=== PATIENT | male | born 1970 | race Caucasian/White ===

== ENCOUNTER 2019-10-02 11:20 | Inpatient (IN) | payer BC ==
[2019-10-02 12:02] VITALS: BMI 24.2
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
[2019-10-02] MEDS ORDERED: MENTHOL/PHENOL 1 EACH UD MM PRN (13:44)
[2019-10-02] MEDS ORDERED: chlordiazePOXIDE HCL 25 MG CAPSULE PO PRN (13:44)
[2019-10-02] MEDS ORDERED: ACETAMINOPHEN 325 MG TABLET (FP) PO PRN ×2 (13:44)
[2019-10-02] MEDS ORDERED: hydrOXYzine PAMOATE 25 MG CAPSULE (FP) PO PRN (13:44)
[2019-10-02] MEDS ORDERED: NICOTINE POLACRILEX 2 MG GUM BUC PRN (13:44)
[2019-10-02] MEDS ORDERED: MAGNESIUM CITRATE 300 ML BOTTLE PO PRN (13:44)
[2019-10-02] MEDS ORDERED: MAGNESIUM HYDROX 2400MG/30ML ORAL SUSPENSION 30 ML CUP PO PRN (13:44)
[2019-10-02] MEDS ORDERED: BISMUTH SUBSALICYLATE 262 MG/15 ML BTL PO PRN (13:44)
[2019-10-02] MEDS ORDERED: MAG HYDROX/AL HYDROX/SIMETH 30 ML UNIT-DOSE CUP PO PRN (13:44)
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
[2019-10-02] MEDS ORDERED: chlordiazePOXIDE HCL 25 MG CAPSULE PO ONE (14:40)
[2019-10-02] MEDS: GABAPENTIN 400 MG CAPSULE (FP) PO SCH ×2 (14:59→22:07)
[2019-10-02] MEDS: NICOTINE 14 MG/24 HOURS TOPICAL PATCH TD SCH (14:59)
[2019-10-02] MEDS: LISINOPRIL 5 MG TABLET (FP) PO SCH (14:59)
[2019-10-02] MEDS: IBUPROFEN 400 MG TABLET (FP) PO PRN (15:01)
[2019-10-02] MEDS: BACITRACIN 15 GM TUBE TOPICAL OINTMENT TP SCH ×2 (15:05→22:08)
[2019-10-02] MEDS: chlordiazePOXIDE HCL 25 MG CAPSULE PO SCH ×2 (17:27→22:07)
[2019-10-02] MEDS: METHOCARBAMOL 500 MG TABLET PO PRN (17:29)
[2019-10-02] MEDS: THIAMINE HCL 100 MG TABLET (FP) PO SCH (22:07)
[2019-10-02] MEDS: MELATONIN 5 MG TABLETS PO PRN (22:07)
[2019-10-03] MEDS: chlordiazePOXIDE HCL 25 MG CAPSULE PO SCH ×4 (05:31→22:12)
[2019-10-03] MEDS: GABAPENTIN 400 MG CAPSULE (FP) PO SCH ×3 (05:32→22:11)
[2019-10-03] MEDS: METHOCARBAMOL 500 MG TABLET PO PRN ×2 (05:33→17:40)
[2019-10-03] MEDS: IBUPROFEN 400 MG TABLET (FP) PO PRN ×2 (05:33→17:41)
[2019-10-03 09:53] LABS: HEMATOCRIT 40.3 % (35.4-49); HEMOGLOBIN 13.4 GM/dL (11.7-16.9); MCH 29.6 pg (25.7-33.7); MCHC 33.2 g/dl (32.0-35.9); MEAN CELL VOLUME 89.2 fl (80-96); MEAN PLT VOLUME 7.8 fl (7.5-11.1); PLATELET COUNT 255 K/MM3 (134-434); RBC 4.52 M/mm3 (4.00-5.60); RDW 17.3 % (11.9-15.9); WHITE BLOOD COUNT 7.3 K/mm3 (4.0-10.0)
[2019-10-03 10:06] LABS: ALBUMIN 3.5 g/dl (3.4-5.0); BILIRUBIN,TOTAL 0.4 mg/dL (0.2-1); BLOOD UREA NITROGEN 20.5 mg/dL (7-18); CALCIUM 8.8 mg/dL (8.5-10.1); TOT PROT 6.6 g/dl (6.4-8.2)
[2019-10-03] MEDS: BACITRACIN 15 GM TUBE TOPICAL OINTMENT TP SCH ×2 (10:08→22:11)
[2019-10-03] MEDS: LISINOPRIL 5 MG TABLET (FP) PO SCH (10:08)
[2019-10-03] MEDS: NICOTINE 14 MG/24 HOURS TOPICAL PATCH TD SCH (10:08)
[2019-10-03] MEDS: PRENATAL VITAMINS W/ FOLIC ACID TABLET (FP) PO SCH (10:08)
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
[2019-10-03] MEDS: ESCITALOPRAM OXALATE 20 MG TABLET (FP) PO SCH (10:51)
--- NOTE | 2019-10-03 13:32 | PN ---
S CIWA - CIWA Score Nausea/Vomitin-No Nausea/No Vomiting Muscle Tremors: 3 Anxiety: 3 Agitation: 3 Paroxysmal Sweats: 3 Orientation: 0-Oriented Tacttile Disturbances: 0-None Auditory Disturbances: 0-None Visual Disturbances: 0-None Headache: 0-None Present CIWA-Ar Total Score: 12 S Progress Note (SOAP) Subjective: sweats shakes interrupted sleep body aches irritable Objective: 10/03/19 13:33 Vital Signs Temperature 97.9 F 10/03/19 09:41 Pulse Rate 100 H 10/03/19 09:41 Respiratory Rate 18 10/03/19 09:41 Blood Pressure 141/96 10/03/19 09:41 O2 Sat by Pulse Oximetry (%) Laboratory Tests 10/03/19 10/03/19 10/03/19 08:00 08:00 08:00 WBC 7.3 RBC 4.52 Hgb 13.4 Hct 40.3 MCV 89.2 MCH 29.6 MCHC 33.2 RDW 17.3 H Plt Count 255 MPV 7.8 Sodium 139 Potassium 4.0 Chloride 104 Carbon Dioxide 30 Anion Gap 5 L BUN 20.5 H Creatinine 1.0 Est GFR (CKD-EPI)AfAm 103.42 Est GFR (CKD-EPI)NonAf 89.23 Random Glucose 93 Calcium 8.8 Total Bilirubin 0.4 AST 23 ALT 51 Alkaline Phosphatase 104 Total Protein 6.6 Albumin 3.5 RPR Titer Nonreactive aaox3 ambulating no acute distress Assessment: 10/03/19 13:34 withdrawals Plan: continue detox increase fluids
[2019-10-03] MEDS: traZODone HCL 100 MG TABLET (FP) PO SCH (22:11)
[2019-10-03] MEDS: THIAMINE HCL 100 MG TABLET (FP) PO SCH (22:12)
[2019-10-03] MEDS: MELATONIN 5 MG TABLETS PO PRN (22:12)
[2019-10-04] MEDS: GABAPENTIN 400 MG CAPSULE (FP) PO SCH ×3 (05:55→22:32)
[2019-10-04] MEDS: chlordiazePOXIDE HCL 25 MG CAPSULE PO SCH ×4 (05:55→22:32)
[2019-10-04] MEDS: LISINOPRIL 5 MG TABLET (FP) PO SCH (10:56)
[2019-10-04] MEDS: PRENATAL VITAMINS W/ FOLIC ACID TABLET (FP) PO SCH (10:56)
[2019-10-04] MEDS: ESCITALOPRAM OXALATE 20 MG TABLET (FP) PO SCH (10:56)
[2019-10-04] MEDS: NICOTINE 14 MG/24 HOURS TOPICAL PATCH TD SCH (10:57)
[2019-10-04] MEDS: BACITRACIN 15 GM TUBE TOPICAL OINTMENT TP SCH ×2 (10:58→22:33)
--- NOTE | 2019-10-04 12:06 | PN ---
S CIWA - CIWA Score Nausea/Vomitin-No Nausea/No Vomiting Muscle Tremors: 3 Anxiety: 2 Agitation: 3 Paroxysmal Sweats: 2 Orientation: 0-Oriented Tacttile Disturbances: 0-None Auditory Disturbances: 0-None Visual Disturbances: 0-None Headache: 0-None Present CIWA-Ar Total Score: 10 S Progress Note (SOAP) Subjective: sweats chills body aches Objective: 10/04/19 12:05 Vital Signs Temperature 97.3 F L 10/04/19 09:41 Pulse Rate 100 H 10/04/19 09:41 Respiratory Rate 16 10/04/19 09:41 Blood Pressure 111/71 10/04/19 09:41 O2 Sat by Pulse Oximetry (%) Laboratory Tests 10/03/19 10/03/19 10/03/19 08:00 08:00 08:00 WBC 7.3 RBC 4.52 Hgb 13.4 Hct 40.3 MCV 89.2 MCH 29.6 MCHC 33.2 RDW 17.3 H Plt Count 255 MPV 7.8 Sodium 139 Potassium 4.0 Chloride 104 Carbon Dioxide 30 Anion Gap 5 L BUN 20.5 H Creatinine 1.0 Est GFR (CKD-EPI)AfAm 103.42 Est GFR (CKD-EPI)NonAf 89.23 Random Glucose 93 Calcium 8.8 Total Bilirubin 0.4 AST 23 ALT 51 Alkaline Phosphatase 104 Total Protein 6.6 Albumin 3.5 RPR Titer Nonreactive labs noted BUN 20.5 encourage water intake aaox3 ambulating no acute distress Assessment: 10/04/19 12:05 withdrawal sx Plan: continue detox increase fluids
[2019-10-04] MEDS: traZODone HCL 100 MG TABLET (FP) PO SCH (22:33)
[2019-10-04] MEDS: THIAMINE HCL 100 MG TABLET (FP) PO SCH (22:33)
[2019-10-04] MEDS: MELATONIN 5 MG TABLETS PO PRN (22:33)
[2019-10-04] MEDS: METHOCARBAMOL 500 MG TABLET PO PRN (22:34)
[2019-10-05] MEDS ORDERED: chlordiazePOXIDE HCL 10 MG CAPSULE PO PRN
[2019-10-05] MEDS: GABAPENTIN 400 MG CAPSULE (FP) PO SCH ×3 (05:54→22:39)
[2019-10-05] MEDS: chlordiazePOXIDE HCL 10 MG CAPSULE PO SCH ×4 (05:54→22:39)
[2019-10-05] MEDS: PRENATAL VITAMINS W/ FOLIC ACID TABLET (FP) PO SCH (11:12)
[2019-10-05] MEDS: NICOTINE 14 MG/24 HOURS TOPICAL PATCH TD SCH (11:12)
[2019-10-05] MEDS: ESCITALOPRAM OXALATE 20 MG TABLET (FP) PO SCH (11:12)
[2019-10-05] MEDS: LISINOPRIL 5 MG TABLET (FP) PO SCH (11:12)
[2019-10-05] MEDS: BACITRACIN 15 GM TUBE TOPICAL OINTMENT TP SCH ×2 (11:14→22:38)
--- NOTE | 2019-10-05 14:50 | PN ---
S CIWA - CIWA Score Nausea/Vomitin-No Nausea/No Vomiting Muscle Tremors: 2 Anxiety: 2 Agitation: 2 Paroxysmal Sweats: 2 Orientation: 0-Oriented Tacttile Disturbances: 0-None Auditory Disturbances: 0-None Visual Disturbances: 0-None Headache: 0-None Present CIWA-Ar Total Score: 8 BHS Progress Note (SOAP) Subjective: Feels foggy, sweating, diarrhea Objective: 10/05/19 14:46 Last Vital Signs Temp Pulse Resp BP Pulse Ox 97.7 F 95 H 18 131/96 10/05/19 14:11 10/05/19 14:11 10/05/19 14:11 10/05/19 14:11 Elevated b/p: has HTN, on med Laboratory Tests 10/03/19 10/03/19 10/03/19 08:00 08:00 08:00 WBC 7.3 RBC 4.52 Hgb 13.4 Hct 40.3 MCV 89.2 MCH 29.6 MCHC 33.2 RDW 17.3 H Plt Count 255 MPV 7.8 Sodium 139 Potassium 4.0 Chloride 104 Carbon Dioxide 30 Anion Gap 5 L BUN 20.5 H Creatinine 1.0 Est GFR (CKD-EPI)AfAm 103.42 Est GFR (CKD-EPI)NonAf 89.23 Random Glucose 93 Calcium 8.8 Total Bilirubin 0.4 AST 23 ALT 51 Alkaline Phosphatase 104 Total Protein 6.6 Albumin 3.5 RPR Titer Nonreactive Labs reviewed: bun 20.5 Assessment: 10/05/19 14:48 Withdrawal sxs Noted with azotemia Plan: Continue detox Azotemia: encouraged PO water intake HTN: continue lisinopril, monitor b/p
[2019-10-05] MEDS: traZODone HCL 100 MG TABLET (FP) PO SCH (22:39)
[2019-10-05] MEDS: THIAMINE HCL 100 MG TABLET (FP) PO SCH (22:39)
[2019-10-06] MEDS: chlordiazePOXIDE HCL 10 MG CAPSULE PO SCH ×2 (05:42→17:08)
[2019-10-06] MEDS: GABAPENTIN 400 MG CAPSULE (FP) PO SCH ×3 (08:00→22:06)
[2019-10-06] MEDS: LISINOPRIL 5 MG TABLET (FP) PO SCH (10:17)
[2019-10-06] MEDS: NICOTINE 14 MG/24 HOURS TOPICAL PATCH TD SCH (10:17)
[2019-10-06] MEDS: BACITRACIN 15 GM TUBE TOPICAL OINTMENT TP SCH ×2 (10:17→22:06)
[2019-10-06] MEDS: ESCITALOPRAM OXALATE 20 MG TABLET (FP) PO SCH (10:17)
[2019-10-06] MEDS: PRENATAL VITAMINS W/ FOLIC ACID TABLET (FP) PO SCH (10:17)
--- NOTE | 2019-10-06 12:39 | PN ---
S CIWA - CIWA Score Nausea/Vomitin-No Nausea/No Vomiting Muscle Tremors: 1-None Visible, but [place] Anxiety: 1-Mildly Anxious Agitation: 1-Slight > Activity Paroxysmal Sweats: No Perspiration Orientation: 0-Oriented Tacttile Disturbances: 1-Very Mild Itch/Numbness Auditory Disturbances: 0-None Visual Disturbances: 0-None Headache: 1-Very Mild CIWA-Ar Total Score: 5 BHS Progress Note (SOAP) Subjective: alert,irritable,anxious,interrupted sleep Objective: 10/06/19 12:38 Vital Signs Temperature 98.9 F 10/06/19 09:44 Pulse Rate 88 10/06/19 09:44 Respiratory Rate 18 10/06/19 09:44 Blood Pressure 110/76 10/06/19 09:44 O2 Sat by Pulse Oximetry (%) Assessment: 10/06/19 12:38 withdrawal symptom Plan: continue detox librium regimen,discharge in am
[2019-10-06] MEDS: METHOCARBAMOL 500 MG TABLET PO PRN (17:10)
[2019-10-06] MEDS: IBUPROFEN 400 MG TABLET (FP) PO PRN (17:11)
[2019-10-06] MEDS: THIAMINE HCL 100 MG TABLET (FP) PO SCH (22:06)
[2019-10-06] MEDS: traZODone HCL 100 MG TABLET (FP) PO SCH (22:06)
[2019-10-06] MEDS: MELATONIN 5 MG TABLETS PO PRN (22:08)
[2019-10-07] MEDS ORDERED: chlordiazePOXIDE HCL 10 MG CAPSULE PO ONE (05:00)
[2019-10-07] MEDS: GABAPENTIN 400 MG CAPSULE (FP) PO SCH (05:54)
--- NOTE | 2019-10-07 09:17 | DS ---
[facility] Detox Discharge Summary Admission Date: 10/02/19 Discharge Date: 10/07/19 - History Present History: Alcohol Dependence - Physical Exam Results Vital Signs: Vital Signs Temperature 97.2 F L 10/07/19 06:00 Pulse Rate 78 10/07/19 06:00 Respiratory Rate 18 10/07/19 06:00 Blood Pressure 104/64 10/07/19 06:00 O2 Sat by Pulse Oximetry (%) Pertinent Admission Physical Exam Findings: pt arrived in withdrawals Vital Signs Temperature 97.2 F L 10/07/19 06:00 Pulse Rate 78 10/07/19 06:00 Respiratory Rate 18 10/07/19 06:00 Blood Pressure 104/64 10/07/19 06:00 O2 Sat by Pulse Oximetry (%) Laboratory Tests 10/03/19 10/03/19 10/03/19 08:00 08:00 08:00 WBC 7.3 RBC 4.52 Hgb 13.4 Hct 40.3 MCV 89.2 MCH 29.6 MCHC 33.2 RDW 17.3 H Plt Count 255 MPV 7.8 Sodium 139 Potassium 4.0 Chloride 104 Carbon Dioxide 30 Anion Gap 5 L BUN 20.5 H Creatinine 1.0 Est GFR (CKD-EPI)AfAm 103.42 Est GFR (CKD-EPI)NonAf 89.23 Random Glucose 93 Calcium 8.8 Total Bilirubin 0.4 AST 23 ALT 51 Alkaline Phosphatase 104 Total Protein 6.6 Albumin 3.5 RPR Titer Nonreactive today pt is aaox3 ambulating no acute distress no s/s of withdrawals - Treatment Hospital Course: Detox Protocol Followed, Detoxed Safely, Responded well, Discharged Condition Good, Rehab Referral Accepted Patient has Accepted a Rehab Referral to: pt referred to [facility] inpatient rehab - Medication Discharge Medications: Ambulatory Orders Escitalopram Oxalate [Lexapro -] 20 mg PO DAILY 10/02/19 Gabapentin [Neurontin -] 800 mg PO Q8H 10/02/19 Lisinopril [Prinivil] 5 mg PO DAILY 10/02/19 traZODone HCL [Trazodone HCl] 100 mg PO HS 10/02/19 - Diagnosis (1) Alcohol-induced mood disorder Current Visit: Yes Status: Acute (2) Alcohol-induced sleep disorder Current Visit: Yes Status: Acute (3) Alcohol withdrawal Current Visit: Yes Status: Chronic Qualifiers: Complication of substance-induced condition: uncomplicated Qualified Code(s ): F10.230 - Alcohol dependence with withdrawal, uncomplicated (4) Chronic back pain Current Visit: Yes Status: Chronic Qualifiers: Back pain laterality: unspecified (5) HTN (hypertension) Current Visit: Yes Status: Chronic Qualifiers: Hypertension type: essential hypertension Qualified Code(s): I10 - Essential (primary) hypertension (6) MDD (major depressive disorder) Current Visit: Yes Status: Chronic (7) Nicotine dependence Current Visit: Yes Status: Chronic Qualifiers: Nicotine product type: cigarettes Substance use status: uncomplicated Qualified Code(s): F17.210 - Nicotine dependence, cigarettes, uncomplicated (8) Peripheral neuropathy Current Visit: Yes Status: Chronic - AMA Did Patient Leave Against Medical Advice: No
[2019-10-07 09:33] VITALS: BP 132/96; PULSE 99; TEMP 97.5
== END 2019-10-07 10:28 | disposition home or self-care (01) | DRG 775 ==
LOC: YASAS 11:20 → Y6N 14:08
PROVIDERS: ADMIT Allergy & Immunology; ATTEND Allergy & Immunology
PROC: HZ2ZZZZ Detoxification Services for Substance Abuse Treatment (ICD-10-PCS; principal; 2019-10-02)
DX: F10.230 Alcohol dependence with withdrawal, uncomplicated (principal); F17.210 Nicotine dependence, cigarettes, uncomplicated; F10.282 Alcohol dependence with alcohol-induced sleep disorder; F10.24 Alcohol dependence with alcohol-induced mood disorder; F32.9 Major depressive disorder, single episode, unspecified; G62.9 Polyneuropathy, unspecified; I10 Essential (primary) hypertension; M54.9 Dorsalgia, unspecified; G89.29 Other chronic pain; R79.89 Other specified abnormal findings of blood chemistry; Z88.0 Allergy status to penicillin
CPT/HCPCS: 36415; 80053; 85027; 86593

== ENCOUNTER 2025-01-14 13:57 | Inpatient (IN) | payer BC ==
[2025-01-14 15:19] VITALS: BMI 23.9
[2025-01-14] MEDS ORDERED: ACETAMINOPHEN 325 MG TABLET (FP) PO PRN (15:53)
[2025-01-14] MEDS ORDERED: BENZONATATE 200 MG CAPSULE PO PRN (15:53)
[2025-01-14] MEDS ORDERED: BENZOCAINE/MENTHOL (CHLORASEPTIC ) LOZENGE MM PRN (15:53)
[2025-01-14] MEDS ORDERED: NICOTINE POLACRILEX 2 MG GUM BUC PRN (15:53)
[2025-01-14] MEDS ORDERED: BISMUTH SUBSALICYLATE 524 MG/30 ML PO PRN (15:53)
[2025-01-14] MEDS ORDERED: chlordiazePOXIDE HCL 25 MG CAPSULE PO PRN (16:00)
[2025-01-14] MEDS ORDERED: DICYCLOMINE HCL 10 MG CAPSULE PO PRN (16:00)
[2025-01-14] MEDS ORDERED: MAGNESIUM HYDROX 2400MG/30ML ORAL SUSPENSION 30 ML CUP PO PRN (16:00)
[2025-01-14] MEDS ORDERED: LOPERAMIDE HCL 2 MG CAPSULE PO PRN (16:00)
[2025-01-14] MEDS ORDERED: POLYETHYLENE GLYCOL (HEALTHYLAX) 3350 17 GM PACKET PO PRN (16:00)
[2025-01-14] MEDS ORDERED: guaiFENesin 600 MG TABLET.ER (FP) PO PRN (16:00)
[2025-01-14] MEDS ORDERED: MAG HYDROX/AL HYDROX/SIMETH 30 ML UNIT-DOSE CUP PO PRN (16:00)
[2025-01-14] MEDS ORDERED: NICOTINE POLACRILEX 2 MG LOZENGE BC PRN (16:00)
[2025-01-14] MEDS ORDERED: NALOXONE (NARCAN) HCL 4 MG/0.1 ML SPRAY NS PRN (16:00)
[2025-01-14] MEDS ORDERED: propRANOLol HCL 10 MG TABLET ONE (16:02)
[2025-01-14] MEDS: propRANOLol HCL 10 MG TABLET PO ONE (16:05)
[2025-01-14] MEDS: chlordiazePOXIDE HCL 25 MG CAPSULE PO SCH (16:07)
[2025-01-14] MEDS: ONDANSETRON *ODT* 4 MG TABLET SL PRN (19:05)
[2025-01-14] MEDS: TRIMETHOBENZAMIDE HCL 200MG/2ML INJ IM ONE (22:18)
[2025-01-14] MEDS: MELATONIN 5 MG TABLETS PO SCH (22:44)
[2025-01-14] MEDS: levETIRAcetam 500 MG TABLET (FP) PO SCH (22:44)
[2025-01-14] MEDS: THIAMINE 100 MG TABLET PO SCH (22:44)
[2025-01-14] MEDS: METHOCARBAMOL 500 MG TABLET PO PRN (22:44)
[2025-01-15] MEDS: PRENATAL VITAMINS W/ FOLIC ACID TABLET (FP) PO SCH (10:12)
[2025-01-15] MEDS: FLU VACCINE (FLULAVAL) PF 45 MCG/0.5 ML SYRINGE 2024-2025 IM ONE (12:47)
[2025-01-15 17:22] LABS: HEMATOCRIT 45.1 % (35.4-49); HEMOGLOBIN 15.4 GM/dL (11.7-16.9); MCH 30.3 pg (25.7-33.7); MCHC 34.1 g/dl (32.0-35.9); MEAN CELL VOLUME 88.6 fl (80-96); MEAN PLT VOLUME 7.5 fl (7.5-11.1); PLATELET COUNT 236 10^3/uL (134-434); RBC 5.09 M/mm3 (4.00-5.60); RDW 14.3 % (11.9-15.9); WHITE BLOOD COUNT 10.3 K/mm3 (4.0-10.0)
[2025-01-15 17:31] LABS: POTASSIUM 3.6 mmol/L (3.5-5.1)
[2025-01-15 17:33] LABS: ALBUMIN 3.5 g/dl (3.4-5.0); CALCIUM 8.8 mg/dL (8.5-10.1)
[2025-01-15 17:34] LABS: BLOOD UREA NITROGEN 20.8 mg/dL (7-18)
[2025-01-15 17:37] LABS: CREATININE 1.1 mg/dL (0.55-1.3)
[2025-01-15 17:38] LABS: BILIRUBIN,TOTAL 1.3 mg/dL (0.2-1); TOT PROT 6.5 g/dl (6.4-8.2)
[2025-01-16] MEDS: chlordiazePOXIDE HCL 25 MG CAPSULE PO SCH (06:00)
[2025-01-17] MEDS ORDERED: chlordiazePOXIDE HCL 10 MG CAPSULE PO PRN
[2025-01-17] MEDS: chlordiazePOXIDE HCL 10 MG CAPSULE PO SCH (05:50)
[2025-01-18] MEDS: chlordiazePOXIDE HCL 10 MG CAPSULE PO SCH (05:55)
[2025-01-18 06:12] VITALS: BP 147/94; PULSE 80; RESP 17; TEMP 97.5
[2025-01-19] MEDS ORDERED: chlordiazePOXIDE HCL 10 MG CAPSULE PO ONE (05:00)
== END 2025-01-18 09:53 | disposition home or self-care (01) | DRG 775 ==
LOC: YASAS 13:57 → Y6N 17:48
PROVIDERS: ADMIT Allergy & Immunology; ATTEND Allergy & Immunology
PROC: HZ2ZZZZ Detoxification Services for Substance Abuse Treatment (ICD-10-PCS; principal; 2025-01-14)
DX: F10.230 Alcohol dependence with withdrawal, uncomplicated (principal); F17.210 Nicotine dependence, cigarettes, uncomplicated; F10.282 Alcohol dependence with alcohol-induced sleep disorder; F10.24 Alcohol dependence with alcohol-induced mood disorder; I10 Essential (primary) hypertension; G40.89 Other seizures; Z88.0 Allergy status to penicillin
CPT/HCPCS: 36415; 80053; 80305; 80307; 85027; 86780; 90656; 93005; 93010; G0008; Q0162